=== PATIENT | female | born 1995 | race Caucasian/White ===

== ENCOUNTER → 2016-10-01 | Outpatient (CLI) | payer OTHER ==
[~2016-10-01] MED LIST: ISOVUE-M 300 61% 15ML VIAL (Q9967) As Ordered ONE; LIDOCAINE 1% SDV INJ 30 ML VIAL As Ordered ONE; diazePAM 5 MG TAB As Ordered ONE; methylPREDNISolone SUSP 40 MG/ML (DEPO-medrol) VIAL (J1030) As Ordered ONE; oxyCODONE 5MG TAB As Ordered ONE
--- NOTE | 2016-10-01 17:20 | REP ---
FLUOROSCOPIC GUIDED SPINAL INJECTION: The images were reviewed with Dr. Patel. The patient has a history of low back pain. The portable C-arm was provided in the OR for Dr. Torre for fluoroscopic guidance. Four intraoperative fluoroscopic spot films were obtained for needle placement verification for lumbar epidural injection. The films are on the PACs system and are available for review. 16 seconds of fluoroscopy time was utilized for this procedure. Reviewed by DEREK Huang 10/02/2016 07:54 AEdited and Signed by Jerome Patel MD 10/02/2016 01:26 P
--- NOTE | 2016-10-05 00:25 | ECWPNPC ---
PATIENT NAME: MARYLU RICKETTS : 1995 GENDER: FEMALE VISIT DATE: 10/01/2016 DISCHARGE DATE: 10/01/16 1221 VISIT LOCKED DATE TIME: PHYSICIAN: ZUHAIR NIELSON RESOURCE: ZUHAIR NIELSON REASON FOR APPOINTMENT 1. LESB HISTORY OF PRESENT ILLNESS HISTORY OF PRESENT ILLNESS: PAIN THE PATIENT DESCRIBES THE PAIN... FALL RISK SCREENING: SCREENING :NO FALLS IN THE PAST YEAR CURRENT MEDICATIONS TAKING CYCLOBENZAPRINE HCL 10 MG TABLET 1 TABLET ORALLY THREE TIMES A DAY NEEDED, NOTES: > 1 WEEK TAKING SPIRONOLACTONE 25 MG TABLET 2 TABLETS ORALLY TWICE A DAY, NOTES: 09/29/16 TAKING LYRICA 75 MG CAPSULE 1 CAPSULE ORALLY TWICE A DAY, NOTES: 09/29/161999 NOT-TAKING GABAPENTIN 300 MG CAPSULE 1 CAPSULE ORALLY THREE TIMES A DAY MEDICATION LIST REVIEWED AND RECONCILED WITH THE PATIENT PAST MEDICAL HISTORY PCOS ALLERGIES ZITHROMAX: HIVES: ALLERGY SOCIAL HISTORY TOBACCO USE ARE YOU A:NONSMOKER LEARNING BARRIERS / SPECIAL NEEDS ORIENTED TO PLAN OF CARE: PATIENT, PAIN MANAGEMENT PATIENT, ORIENTED TO PLAN OF CARE: PATIENT, PAIN MANAGEMENT PATIENT. NEW PATIENT PAIN DIARY TODAY'S VISITNOTES FROM 0-10, WHAT LEVEL IS YOUR PAIN TODAY?0 PAIN CLINIC PFS, CLERGY, PUBLIC HEALTH REFERRALS PFS REFERRAL NEEDED?NO CLERGY REFERRAL NEEDED?NO PUBLIC HEALTH REFERRAL NEEDED?NO WAS THE PROVIDER NOTIFIED OF ANY PERTINENT INFO?NO PFS REFERRAL NEEDED?NO CLERGY REFERRAL NEEDED?NO PUBLIC HEALTH REFERRAL NEEDED?NO WAS THE PROVIDER NOTIFIED OF ANY PERTINENT INFO?NO REVIEW OF SYSTEMS CONSTITUTIONAL: ANY CHANGE IN YOUR MEDICAL CONDITION? NO . CHILLS NO . FEVER NO . INFECTION: DO YOU HAVE NEW INFECTIONS? NO . DO YOU HAVE HISTORY OF MRSA? NO . MUSCULOSKELETAL: ANY NEW PATTERNS OF PAIN OR NUMBNESS? NO . GASTROENTEROLOGY: ANY NEW CHANGE IN BOWEL CONTROL? NO . GENITOURINARY: ANY NEW CHANGE IN BLADDER CONTROL? NO . IS THERE A CHANCE YOU COULD BE ? NO . HEMATOLOGY/LYMPH: DO YOU TAKE ANY BLOOD THINNERS? (FOR EXAMPLE- COUMADIN, PLAVIX, AGGRENOX, PLATEL, PRADAXA, OR XARELTO) NO . WHEN WAS YOUR LAST DOSE? DATE: TIME: . NEUROLOGY: HAVE YOU FALLEN IN THE PAST 6 MONTHS? NO . ANY NEW EXTREMITY NUMBNESS OR WEAKNESS? NO . CARDIOLOGY: DO YOU HAVE A PACEMAKER OR DEFIBRILLATOR? NO . RESPIRATORY: HAVE YOU BEEN SICK IN THE PAST WEEK? NO . FEVER NO . FLU LIKE SYMPTOMS? NO . COUGH NO . INTEGUMENTARY: DO YOU HAVE ANY RASHES OR OPEN SORES? NO . ALLERGIC/IMMUNO: ARE YOU ALLERGIC TO SHELLFISH OR IV DYE? NO . ANY NEW ALLERGIES? NO . PSYCHIATRIC: DO YOU HAVE THOUGHTS OF HURTING YOURSELF OR SOMEONE ELSE? NO . ARE YOU ABUSED, NEGLECTED, OR IN AN UNSAFE ENVIRONMENT? NO . ENDOCRINOLOGY: ARE YOU DIABETIC? NO . OTHER: DO YOU NEED ANY PRESCRIPTIONS? NO . IF YES, PLEASE LIST: ____ . ANY NEW PROBLEMS WITH YOUR MEDICATIONS? NO . WHEN DID YOU LAST EAT? ____09/30/161999 . WHEN DID YOU LAST DRINK? ____10/01/16 0700 . WHAT DID YOU LAST DRINK? ____WATER . NAME OF PERSON DRIVING YOU HOME? ABDELRAHMAN WAGNER . DO YOU HAVE ANY OTHER QUESTIONS OR CONCERNS NO . REVIEWED BY: PROVIDER: . VITAL SIGNS WT 150 LBS, HT 64", BMI 25.74 INDEX, BP 120/65 MM HG, HR 77 /MIN, RR 16 /MIN, TEMP 96.3 F, OXYGEN SAT % 98%, NA INITIALS SC 09:40, REVIEWED BY: JEZ. ASSESSMENTS INTERVERTEBRAL DISC DISORDERS WITH RADICULOPATHY, LUMBOSACRAL REGION - M51.17 (PRIMARY) PROCEDURES PRE PROCEDURE DIAGNOSIS LUMBOSACRAL DISC DISORDER WITH RADICULOPATHY POST PROCEDURE DIAGNOSIS LUMBOSACRAL DISC DISORDER WITH RADICULOPATHY PROCEDURE LUMBAR EPIDURAL STEROID INJECTION UNDER FLUOROSCOPIC GUIDANCE SURGEON DR. ZUHAIR NIELSON DIGITAL STRATEGIST SENIOR MANAGER NONE ANESTHESIA LOCAL PRE PROCEDURE NOTE THE PATIENT HAS A HISTORY OF CHRONIC LOW BACK PAIN. I EVALUATE THE PATIENT AND REVIEWED THE CHART. I WENT OVER THE RISKS, ALTERNATIVES, AND BENEFITS ASSOCIATED WITH THIS PROCEDURE. THE PATIENT WOULD LIKE TO PROCEED AND GIVE CONSENT TO PERFORMED THE PROCEDURE. THE PATIENT DENIES UNEXPLAINABLE WEIGHT LOSS, FEVER, CHILLS, OR NEW CHANGES IN URINARY OR BOWEL CONTROL. DESCRIPTION OF PROCEDURE THE PATIENT WAS BROUGHT TO THE PROCEDURE ROOM AND PLACED IN THE PRONE POSITION. THE LUMBOSACRAL AREA WAS CLEANED WITH BETADINE SOLUTION AND DRAPED ASEPTICALLY. THE PROCEDURE WAS DONE UNDER STERILE CONDITIONS. I CHECKED LATERALITY AND THE LEVEL WHERE THE PROCEDURE WAS GOING TO BE PERFORMED WITH THE PATIENT AND THE SUPPORTING STAFF AT THE MOMENT OF THE TIME OUT IN THE PROCEDURE ROOM. UNDER FLUOROSCOPIC GUIDANCE, THE TARGET POINT WAS SELECTED AT THE INTERLAMINAR LEVEL OF L5-S1. LIDOCAINE WAS USED TO NUMB THE SKIN AND THE SUBCUTANEOUS TISSUE BELOW IT. EPIDURAL TUOHY NEEDLE, 17-GAUGE, WAS ADVANCED UNDER FLUOROSCOPIC GUIDANCE AND FOLLOWING PATIENT FEEDBACK UNTIL THE EPIDURAL SPACE WAS REACHED, 7 CM DEEP INTO THE SKIN BY THE LOSS OF RESISTANCE TECHNIQUE. ISOVUE M DYE 30%, 0.25 ML, WAS INJECTED SHOWING ADEQUATE SPREAD OF THE DYE. THEN, A SOLUTION OF 3 ML OF NORMAL SALINE WITH DEPO-MEDROL 60 MG WAS INJECTED SLOWLY FOLLOWING PATIENT FEEDBACK. THERE WAS NO EVIDENCE OF BLOOD, PARESTHESIA OR CEREBROSPINAL FLUID DURING THE PROCEDURE. THE PATIENT WAS SENT TO THE RECOVERY ROOM. THE PATIENT WAS MOVING THE EXTREMITIES AND DOING WELL. THERE WAS NO COMPLICATION DURING THE PROCEDURE. FLUOROSCOPY TIME WAS 16 SECONDS. POST PROCEDURE NOTE THE PATIENT WILL BE SEEN IN A FOLLOW UP IN THE NEXT FEW WEEKS. INSTRUCTIONS WERE GIVEN, QUESTIONS WERE ANSWERED, AND THE PATIENT EXPRESSED UNDERSTANDING AND AGREES WITH THE PLAN. DIAGNOSTIC IMAGING [facility] FLUORO GUIDE SPINE INJECTION (PAIN)[id number] PROCEDURE CODES 33105 LUMBAR/SACRAL W/ IMAGING 6045F RADXPS IN END [id number] PXD FOLLOW UP 3 WEEKS ELECTRONICALLY SIGNED BY ZUHAIR NIELSON MD ON 10/04/2016 AT 11:49 PM EST DISCLAIMER : THIS IS A VISIT SUMMARY EXTRACTED FROM THE [employer] CHART. IT IS NOT A COPY OF THE [employer] PROGRESS NOTE. MTDD
== END ==
LOC: M PAIN 09:40
PROVIDERS: ATTEND Anesthesiology
DX: G89.29 Other chronic pain (principal); M51.17 Intervertebral disc disorders with radiculopathy, lumbosacral region; E28.2 Polycystic ovarian syndrome; Z88.8 Allergy status to other drugs, medicaments and biological substances; Z79.899 Other long term (current) drug therapy
CPT/HCPCS: 62323; J1030; Q9967

== ENCOUNTER → 2016-10-15 | Outpatient (CLI) | payer OTHER ==
--- NOTE | 2016-10-16 00:15 | ECWPNPC ---
PATIENT NAME: MARYLU RICKETTS : 1995 GENDER: FEMALE VISIT DATE: 10/15/2016 DISCHARGE DATE: 10/15/16 0958 VISIT LOCKED DATE TIME: PHYSICIAN: CHARLES ARZOLA RESOURCE: CHARLES ARZOLA REASON FOR APPOINTMENT 1. POST LESI 40 MIN HISTORY OF PRESENT ILLNESS HISTORY OF PRESENT ILLNESS: HERE FOR POST PROCEDURE F/U.HAD LESI #1 10-01-2016.REPORTING 50% REDUCTION IN LBP AND LESS FREQUENT AND LESS INTENSE RIGHT LEG SHOOTING PAIN.RATING PAIN VAS 4/10.HAVING INTERMITTENT SEVERE LBP WITH LIFTING OR BENDING THAT IS UNCHANGED SINCE LESI.SAW INES [place] AT [facility] [place] RECENTLY WHO DID NOT RECOMMEND SURGERY.PATIENT IS PURSUING A SECOND OPINION WITH DR. VILLARREAL AT [facility] [place]DISCUSSED TREATMENT OPTIONS. FALL RISK SCREENING: SCREENING :NO FALLS IN THE PAST YEAR CURRENT MEDICATIONS TAKING CYCLOBENZAPRINE HCL 10 MG TABLET 1 TABLET ORALLY THREE TIMES A DAY NEEDED, NOTES: > 1 WEEK TAKING SPIRONOLACTONE 25 MG TABLET 2 TABLETS ORALLY TWICE A DAY, NOTES: 09/29/16 TAKING LYRICA 150 MG CAPSULE 1 CAPSULE ORALLY TWICE A DAY, NOTES: 09/29/161999 TAKING TRAMADOL HCL 50 MG TABLET 1 TAB ORALLY ONCE DAILY NEEDED NOT-TAKING GABAPENTIN 300 MG CAPSULE 1 CAPSULE ORALLY THREE TIMES A DAY MEDICATION LIST REVIEWED AND RECONCILED WITH THE PATIENT PAST MEDICAL HISTORY PCOS ALLERGIES ZITHROMAX: HIVES: ALLERGY SOCIAL HISTORY GENERAL: TOBACCO USE ARE YOU A:CURRENT SMOKER HOW MANY CIGARETTES A DAY DO YOU SMOKE?5 OR LESS HOW SOON AFTER YOU WAKE UP DO YOU SMOKE YOUR FIRST CIGARETTE?AFTER 60 MIN HOW OFTEN DO YOU SMOKE CIGARETTES?SOME DAYS, BUT NOT EVERY DAY PATIENT COUNSELED ON THE DANGERS OF TOBACCO USE AND URGED TO QUIT: COUNCELED ON THE IMPORTANCE OF QUITTING. SHE IS NOT READY AT THIS TIME ARE YOU INTERESTED IN QUITTING?NOT READY TO QUIT LEARNING BARRIERS / SPECIAL NEEDS ORIENTED TO PLAN OF CARE: PATIENT, PAIN MANAGEMENT PATIENT, ORIENTED TO PLAN OF CARE: PATIENT, PAIN MANAGEMENT PATIENT. NEW PATIENT PAIN DIARY TODAY'S VISITNOTES FROM 0-10, WHAT LEVEL IS YOUR PAIN TODAY?0 PAIN CLINIC PFS, CLERGY, PUBLIC HEALTH REFERRALS PFS REFERRAL NEEDED?NO CLERGY REFERRAL NEEDED?NO PUBLIC HEALTH REFERRAL NEEDED?NO WAS THE PROVIDER NOTIFIED OF ANY PERTINENT INFO?NO PFS REFERRAL NEEDED?NO CLERGY REFERRAL NEEDED?NO PUBLIC HEALTH REFERRAL NEEDED?NO WAS THE PROVIDER NOTIFIED OF ANY PERTINENT INFO?NO REVIEW OF SYSTEMS CONSTITUTIONAL: ANY CHANGE IN YOUR MEDICAL CONDITION? NO . RECENT ILLNESS DENIES . CHILLS NO . FEVER NO . WEIGHT LOSS DENIES . INFECTION: DO YOU HAVE NEW INFECTIONS? NO . DO YOU HAVE HISTORY OF MRSA? NO . MUSCULOSKELETAL: ANY NEW PATTERNS OF PAIN OR NUMBNESS? NO . GASTROENTEROLOGY: ANY NEW CHANGE IN BOWEL CONTROL? NO . GENITOURINARY: ANY NEW CHANGE IN BLADDER CONTROL? YES, STRESS INCONTINENCE X 6 MONTHS . IS THERE A CHANCE YOU COULD BE ? NO . HEMATOLOGY/LYMPH: DO YOU TAKE ANY BLOOD THINNERS? (FOR EXAMPLE- COUMADIN, PLAVIX, AGGRENOX, PLATEL, PRADAXA, OR XARELTO) NO . WHEN WAS YOUR LAST DOSE? DATE: TIME: . NEUROLOGY: HAVE YOU FALLEN IN THE PAST 6 MONTHS? NO . ANY NEW EXTREMITY NUMBNESS OR WEAKNESS? NO . CARDIOLOGY: DO YOU HAVE A PACEMAKER OR DEFIBRILLATOR? NO . CHEST PAIN DENIES . SHORTNESS OF BREATH DENIES . RESPIRATORY: HAVE YOU BEEN SICK IN THE PAST WEEK? NO . FEVER NO . FLU LIKE SYMPTOMS? NO . COUGH NO, DENIES . SHORTNESS OF BREATH DENIES . INTEGUMENTARY: DO YOU HAVE ANY RASHES OR OPEN SORES? NO . ALLERGIC/IMMUNO: ARE YOU ALLERGIC TO SHELLFISH OR IV DYE? NO . ANY NEW ALLERGIES? NO . PSYCHIATRIC: DO YOU HAVE THOUGHTS OF HURTING YOURSELF OR SOMEONE ELSE? NO . ARE YOU ABUSED, NEGLECTED, OR IN AN UNSAFE ENVIRONMENT? NO . ENDOCRINOLOGY: ARE YOU DIABETIC? NO . OTHER: DO YOU NEED ANY PRESCRIPTIONS? NO . IF YES, PLEASE LIST: ____ . ANY NEW PROBLEMS WITH YOUR MEDICATIONS? NO . WHEN DID YOU LAST EAT? ____ . WHEN DID YOU LAST DRINK? ____ . WHAT DID YOU LAST DRINK? ____ . NAME OF PERSON DRIVING YOU HOME? ____ . DO YOU HAVE ANY OTHER QUESTIONS OR CONCERNS YES WOULD LIKE ANOTHER EPIDURAL . REVIEWED BY: PROVIDER: CHARLES ROBIN . VITAL SIGNS WT 150 LBS, HT 64", BMI 25.74 INDEX, BP 145/70 MM HG, HR 63 /MIN, RR 16 /MIN, TEMP 97.3 F, OXYGEN SAT % 100, NA INITIALS TL 0909, REVIEWED BY: AD. EXAMINATION GENERAL EXAMINATION: LUNGS:LUNG SOUNDS ARE CLEAR. HEART:HEART RATE REGULAR. MUSCULOSKELETAL:*, MUSCLE STRENGTH TESTING 5/5 BILATERAL LOWER EXTREMITIES. PALPATION: NEGATIVE FOR PAIN OVER L/S SPINE. NEGATIVE FOR PAIN OVER L/S PARASPINALS. DIAGNOSTIC:MRI L/S [id number] AND [id number].. ASSESSMENTS PROTRUSION OF INTERVERTEBRAL DISC OF LUMBOSACRAL REGION - M51.27 (PRIMARY) LUMBAR RADICULOPATHY - M54.16 TREATMENT PROTRUSION OF INTERVERTEBRAL DISC OF LUMBOSACRAL REGION CAUDAL/LUMBAR EPIDURAL NOTES: OPTION FOR EPIDURAL INJECTIONS WERE DISCUSSED WITH THE PATIENT. FDA CONCERNS AND WARNING WERE REVIEWED INCLUDING THE RISK OF BLEEDING, RISK OF INFECTION, RISK OF INCREASED PAIN OR NEURALGIA, AND RISK OF PARALYSIS. PATIENT'S QUESTIONS WERE ANSWERED AND HE/SHE WISHES TO MOVE FORWARD WITH EPIDURAL INJECTION. PREVENTIVE MEDICINE PAIN CLINIC TEACHING: PROCEDURE TEACHING PT. DECLINED PRINTED INFORMATION ON THE EPIDURAL.. PROCEDURE CODES FA211 ESTABILISHED PATIENT [facility] CHARGE FOLLOW UP 2WK POST ELECTRONICALLY SIGNED BY SHARDA PIÑA ON 10/15/2016 AT 02:37 PM EST DISCLAIMER : THIS IS A VISIT SUMMARY EXTRACTED FROM THE [employer] CHART. IT IS NOT A COPY OF THE [employer] PROGRESS NOTE. PAULINE
== END ==
LOC: M PAIN 10:00
PROVIDERS: ATTEND Nurse Practitioner Family
DX: M51.27 Other intervertebral disc displacement, lumbosacral region (principal); M54.16 Radiculopathy, lumbar region; G89.29 Other chronic pain; Z79.891 Long term (current) use of opiate analgesic; Z79.899 Other long term (current) drug therapy; F17.210 Nicotine dependence, cigarettes, uncomplicated; Z88.1 Allergy status to other antibiotic agents

== ENCOUNTER → 2016-11-05 | Outpatient (CLI) | payer OTHER ==
[~2016-11-05] MED LIST changes: +diphenhydrAMINE 25 MG CAP As Ordered ONE
--- NOTE | 2016-11-05 14:34 | REP ---
Partial lumbar spine series: Three views. History: Injection procedure for pain. 8 seconds of fluoroscopy time is reported. Findings: A sequence of three fluoroscopically obtained last minute hold spot radiographs of the lumbosacral junction document needle position and contrast injection associated with lumbar epidural injection procedure. Signed by Angel Lozano MD 11/05/2016 04:33 P
--- NOTE | 2016-11-12 01:13 | ECWPNPC ---
PATIENT NAME: MARYLU RICKETTS : 1995 GENDER: FEMALE VISIT DATE: 11/05/2016 DISCHARGE DATE: 11/05/16 1257 VISIT LOCKED DATE TIME: PHYSICIAN: ZUHAIR NIELSON RESOURCE: ZUHAIR NIELSON REASON FOR APPOINTMENT 1. LESI HISTORY OF PRESENT ILLNESS HISTORY OF PRESENT ILLNESS: PAIN THE PATIENT DESCRIBES THE PAIN... FALL RISK SCREENING: SCREENING :NO FALLS IN THE PAST YEAR CURRENT MEDICATIONS TAKING CYCLOBENZAPRINE HCL 10 MG TABLET 1 TABLET ORALLY THREE TIMES A DAY NEEDED, NOTES: 10/29/16 TAKING SPIRONOLACTONE 25 MG TABLET 2 TABLETS ORALLY TWICE A DAY, NOTES: 11/04/16 0800 TAKING LYRICA 150 MG CAPSULE 1 CAPSULE ORALLY TWICE A DAY, NOTES: 11/04/16 0800 TAKING TRAMADOL HCL 50 MG TABLET 1 TAB ORALLY ONCE DAILY NEEDED, NOTES: 11/04/16 0800 NOT-TAKING GABAPENTIN 300 MG CAPSULE 1 CAPSULE ORALLY THREE TIMES A DAY MEDICATION LIST REVIEWED AND RECONCILED WITH THE PATIENT PAST MEDICAL HISTORY PCOS ALLERGIES ZITHROMAX: HIVES: ALLERGY SOCIAL HISTORY GENERAL: TOBACCO USE ARE YOU A:CURRENT SMOKER HOW MANY CIGARETTES A DAY DO YOU SMOKE?6-10 HOW SOON AFTER YOU WAKE UP DO YOU SMOKE YOUR FIRST CIGARETTE?AFTER 60 MIN HOW OFTEN DO YOU SMOKE CIGARETTES?EVERY DAY PATIENT COUNSELED ON THE DANGERS OF TOBACCO USE AND URGED TO QUIT: COUNCELED ON THE IMPORTANCE OF QUITTING. ARE YOU INTERESTED IN QUITTING?READY TO QUIT LEARNING BARRIERS / SPECIAL NEEDS ORIENTED TO PLAN OF CARE: PATIENT, PAIN MANAGEMENT PATIENT, ORIENTED TO PLAN OF CARE: PATIENT, PAIN MANAGEMENT PATIENT. NEW PATIENT PAIN DIARY TODAY'S VISITNOTES FROM 0-10, WHAT LEVEL IS YOUR PAIN TODAY?0 PAIN CLINIC PFS, CLERGY, PUBLIC HEALTH REFERRALS PFS REFERRAL NEEDED?NO CLERGY REFERRAL NEEDED?NO PUBLIC HEALTH REFERRAL NEEDED?NO WAS THE PROVIDER NOTIFIED OF ANY PERTINENT INFO?NO PFS REFERRAL NEEDED?NO CLERGY REFERRAL NEEDED?NO PUBLIC HEALTH REFERRAL NEEDED?NO WAS THE PROVIDER NOTIFIED OF ANY PERTINENT INFO?NO REVIEW OF SYSTEMS CONSTITUTIONAL: ANY CHANGE IN YOUR MEDICAL CONDITION? NO . CHILLS NO . FEVER NO . INFECTION: DO YOU HAVE NEW INFECTIONS? NO . DO YOU HAVE HISTORY OF MRSA? NO . MUSCULOSKELETAL: ANY NEW PATTERNS OF PAIN OR NUMBNESS? NO . GASTROENTEROLOGY: ANY NEW CHANGE IN BOWEL CONTROL? NO . GENITOURINARY: ANY NEW CHANGE IN BLADDER CONTROL? NO . IS THERE A CHANCE YOU COULD BE ? NO, DENIES ANY CHANCE OF PREG. . HEMATOLOGY/LYMPH: DO YOU TAKE ANY BLOOD THINNERS? (FOR EXAMPLE- COUMADIN, PLAVIX, AGGRENOX, PLATEL, PRADAXA, OR XARELTO) NO . WHEN WAS YOUR LAST DOSE? DATE: TIME: . NEUROLOGY: HAVE YOU FALLEN IN THE PAST 6 MONTHS? NO . ANY NEW EXTREMITY NUMBNESS OR WEAKNESS? NO . CARDIOLOGY: DO YOU HAVE A PACEMAKER OR DEFIBRILLATOR? NO . RESPIRATORY: HAVE YOU BEEN SICK IN THE PAST WEEK? NO . FEVER NO . FLU LIKE SYMPTOMS? NO . COUGH NO . INTEGUMENTARY: DO YOU HAVE ANY RASHES OR OPEN SORES? NO . ALLERGIC/IMMUNO: ARE YOU ALLERGIC TO SHELLFISH OR IV DYE? NO . ANY NEW ALLERGIES? NO . PSYCHIATRIC: DO YOU HAVE THOUGHTS OF HURTING YOURSELF OR SOMEONE ELSE? NO . ARE YOU ABUSED, NEGLECTED, OR IN AN UNSAFE ENVIRONMENT? NO . ENDOCRINOLOGY: ARE YOU DIABETIC? NO . OTHER: DO YOU NEED ANY PRESCRIPTIONS? NO . IF YES, PLEASE LIST: ____ . ANY NEW PROBLEMS WITH YOUR MEDICATIONS? NO . WHEN DID YOU LAST EAT? ____11/04/161999 . WHEN DID YOU LAST DRINK? ____11/05/16 0700 . WHAT DID YOU LAST DRINK? ____WATER . NAME OF PERSON DRIVING YOU HOME? ____CRYSTAL MEEK . DO YOU HAVE ANY OTHER QUESTIONS OR CONCERNS YES, WANTS PRESEDATION. LAST FLU VACCINE 06/2016 . REVIEWED BY: PROVIDER: . VITAL SIGNS WT 150 LBS, HT 64", BMI 25.74 INDEX, BP 130/63 MM HG, HR 75 /MIN, RR 16 /MIN, TEMP 97.5 F, OXYGEN SAT % 98, NA INITIALS TL 0940, REVIEWED BY: CRESENCIO, LMP: 09/13/17STATES HER PERIODS ARE IRREGULAR. ASSESSMENTS INTERVERTEBRAL DISC DISORDERS WITH RADICULOPATHY, LUMBOSACRAL REGION - M51.17 (PRIMARY) PROCEDURES PRE PROCEDURE DIAGNOSIS LUMBOSACRAL DISC DISORDER WITH RADICULOPATHY, LUMBOSACRAL RADICULOPATHY POST PROCEDURE DIAGNOSIS LUMBOSACRAL RADICULOPATHY , LUMBOSACRAL DISC DISORDER WITH RADICULOPATHY PROCEDURE L5-S1 EPIDURAL STEROID INJECTION UNDER FLUOROSCOPIC GUIDANCE SURGEON DR. ZUHAIR NIELSON TRIMMING ASSEMBLER NONE ANESTHESIA LOCAL PRE PROCEDURE NOTE THE PATIENT HAS A HISTORY OF CHRONIC LOW BACK PAIN. I EVALUATE THE PATIENT AND REVIEWED THE CHART. I WENT OVER THE RISKS, ALTERNATIVES, AND BENEFITS ASSOCIATED WITH THIS PROCEDURE. THE PATIENT WOULD LIKE TO PROCEED AND GIVE CONSENT TO PERFORMED THE PROCEDURE. THE PATIENT DENIES UNEXPLAINABLE WEIGHT LOSS, FEVER, CHILLS, OR NEW CHANGES IN URINARY OR BOWEL CONTROL. DESCRIPTION OF PROCEDURE THE PATIENT WAS BROUGHT TO THE PROCEDURE ROOM AND PLACED IN THE PRONE POSITION. THE LUMBOSACRAL AREA WAS CLEANED WITH BETADINE SOLUTION AND DRAPED ASEPTICALLY. THE PROCEDURE WAS DONE UNDER STERILE CONDITIONS. I CHECKED LATERALITY AND THE LEVEL WHERE THE PROCEDURE WAS GOING TO BE PERFORMED WITH THE PATIENT AND THE SUPPORTING STAFF AT THE MOMENT OF THE TIME OUT IN THE PROCEDURE ROOM. UNDER FLUOROSCOPIC GUIDANCE, THE TARGET POINT WAS SELECTED AT THE INTERLAMINAR LEVEL OF L5-S1. LIDOCAINE WAS USED TO NUMB THE SKIN AND THE SUBCUTANEOUS TISSUE BELOW IT. EPIDURAL TUOHY NEEDLE, 17-GAUGE, WAS ADVANCED UNDER FLUOROSCOPIC GUIDANCE AND FOLLOWING PATIENT FEEDBACK UNTIL THE EPIDURAL SPACE WAS REACHED, 7 CM DEEP INTO THE SKIN BY THE LOSS OF RESISTANCE TECHNIQUE. ISOVUE M DYE 30%, 0.25 ML, WAS INJECTED SHOWING ADEQUATE SPREAD OF THE DYE. THEN, A SOLUTION OF 3 ML OF NORMAL SALINE WITH DEPO-MEDROL 60 MG WAS INJECTED SLOWLY FOLLOWING PATIENT FEEDBACK. THERE WAS NO EVIDENCE OF BLOOD, PARESTHESIA OR CEREBROSPINAL FLUID DURING THE PROCEDURE. THE PATIENT WAS SENT TO THE RECOVERY ROOM. THE PATIENT WAS MOVING THE EXTREMITIES AND DOING WELL. THERE WAS NO COMPLICATION DURING THE PROCEDURE. FLUOROSCOPY TIME WAS 8 SECONDS. POST PROCEDURE NOTE THE PATIENT WILL BE SEEN IN A FOLLOW UP IN THE NEXT FEW WEEKS. INSTRUCTIONS WERE GIVEN, QUESTIONS WERE ANSWERED, AND THE PATIENT EXPRESSED UNDERSTANDING AND AGREES WITH THE PLAN. INSTRUCTIONS WERE GIVEN, QUESTIONS WERE ANSWERED, PATIENT REPORTS UNDERSTANDING AND AGREES WITH THE PLAN. I, SAULO WOODS, DOCUMENTED THE ABOVE INFORMATION ACTING A SCRIBE FOR DR. NIELSON. I HAVE REVIEWED THE ABOVE DOCUMENT, WRITTEN BY SAULO WOODS SCRIBConstantino AND I VERIFY THAT IT IS ACCURATE. DIAGNOSTIC IMAGING [facility] FLUORO GUIDE SPINE INJECTION (PAIN)[id number] PROCEDURE CODES 88810 LUMBAR/SACRAL W/ IMAGING 6045F RADXPS IN END [id number] PXD FOLLOW UP 3 WEEKS ELECTRONICALLY SIGNED BY ZUHAIR NIELSON MD ON 11/10/2016 AT 01:13 PM EST DISCLAIMER : THIS IS A VISIT SUMMARY EXTRACTED FROM THE [employer] CHART. IT IS NOT A COPY OF THE [employer] PROGRESS NOTE. MTDD
== END ==
LOC: M PAIN 09:40
PROVIDERS: ATTEND Anesthesiology
DX: G89.29 Other chronic pain (principal); M51.17 Intervertebral disc disorders with radiculopathy, lumbosacral region; F17.200 Nicotine dependence, unspecified, uncomplicated; Z88.1 Allergy status to other antibiotic agents; Z79.891 Long term (current) use of opiate analgesic; Z79.899 Other long term (current) drug therapy
CPT/HCPCS: 62323; J1030; Q9967

== ENCOUNTER → 2016-11-19 | Outpatient (CLI) | payer OTHER ==
--- NOTE | 2016-11-19 14:51 | REP ---
CT LUMBAR SPINE WITHOUT CONTRAST: HISTORY: Back pain. There is no disc bulge or herniation at the L1-2 through L3-4 and L5-S1 levels. The nerves exit the neural foramina without compression. The intervertebral discs and vertebral bodies are normal in height. There is no fracture or subluxation. IMPRESSION: Diffuse disc bulge at the L4-5 level with minimal thecal sac compression. Signed by Adelfo Dennis MD 11/19/2016 02:53 P
== END ==
LOC: M RAD 14:13
PROVIDERS: ATTEND Orthopaedic Surgery
DX: M51.27 Other intervertebral disc displacement, lumbosacral region (principal)

== ENCOUNTER → 2017-01-14 | Outpatient (CLI) | payer OTHER ==
--- NOTE | 2017-01-26 00:06 | ECWPNPC ---
PATIENT NAME: MARYLU RICKETTS : 1995 GENDER: FEMALE VISIT DATE: 01/14/2017 DISCHARGE DATE: 01/14/17 1127 VISIT LOCKED DATE TIME: PHYSICIAN: CHARLES ARZOLA RESOURCE: CHARLES ARZOLA REASON FOR APPOINTMENT 1. BACK PAIN HISTORY OF PRESENT ILLNESS HISTORY OF PRESENT ILLNESS: PAIN THE PATIENT DESCRIBES THE PAIN... THE PATIENT DESCRIBES THE PAIN... HERE FOR POST PROCEDURE F/U.HAD LESI #2 ON 11-05-2016.REPORTING 50% REDUCTION IN LBP AND LESS FREQUENT AND LESS INTENSE RIGHT LEG SHOOTING PAIN X ONE MONTH.RATING PAIN VAS 6/10.HAVING INTERMITTENT SEVERE LBP WITH LIFTING OR BENDING THAT IS UNCHANGED SINCE LESI.SAW INES [place] AT [facility] IN [place] RECENTLY WHO DID NOT RECOMMEND SURGERY.SAW DR. VILLARREAL AT [facility] [place] FEW WEEKS AGO WHO IS NOT RECOMMENDING SURGERY.DISCUSSED TREATMENT OPTIONS.PATIENT IS HAVING NO RELAXATION AFTER MULTPLE DOSES OF VALIUM,OXYCODONE AND BENADRYL PRE PROCEDURE.DR. NIELSON IS RECOMMENDING CONCIOUS SEDATION DURING PROCEDURE. FALL RISK SCREENING: SCREENING :NO FALLS IN THE PAST YEAR CURRENT MEDICATIONS TAKING CYCLOBENZAPRINE HCL 10 MG TABLET 1 TABLET ORALLY THREE TIMES A DAY NEEDED TAKING SPIRONOLACTONE 25 MG TABLET 2 TABLETS ORALLY TWICE A DAY TAKING LYRICA 150 MG CAPSULE 1 CAPSULE ORALLY TWICE A DAY TAKING TRAMADOL HCL 50 MG TABLET 1 TAB ORALLY ONCE DAILY NEEDED NOT-TAKING GABAPENTIN 300 MG CAPSULE 1 CAPSULE ORALLY THREE TIMES A DAY MEDICATION LIST REVIEWED AND RECONCILED WITH THE PATIENT PAST MEDICAL HISTORY PCOS ALLERGIES ZITHROMAX: HIVES: ALLERGY SOCIAL HISTORY GENERAL: TOBACCO USE ARE YOU A:CURRENT SMOKER HOW MANY CIGARETTES A DAY DO YOU SMOKE?5 OR LESS HOW SOON AFTER YOU WAKE UP DO YOU SMOKE YOUR FIRST CIGARETTE?AFTER 60 MIN HOW OFTEN DO YOU SMOKE CIGARETTES?EVERY DAY PATIENT COUNSELED ON THE DANGERS OF TOBACCO USE AND URGED TO QUIT:01/14/2017 ARE YOU INTERESTED IN QUITTING?NOT READY TO QUIT COUNSELED THE PATIENT ON SMOKING EFFECTS, EDUCATION [id number]/20/2017 PAIN CLINIC PFS, CLERGY, PUBLIC HEALTH REFERRALS CLERGY REFERRAL NEEDED?NO WAS THE PROVIDER NOTIFIED OF ANY PERTINENT INFO?NO PFS REFERRAL NEEDED?NO PUBLIC HEALTH REFERRAL NEEDED?NO PATIENT: ____. REVIEW OF SYSTEMS CONSTITUTIONAL: ANY CHANGE IN YOUR MEDICAL CONDITION? NO . CHILLS NO . FEVER NO . INFECTION: DO YOU HAVE NEW INFECTIONS? NO . DO YOU HAVE HISTORY OF MRSA? NO . MUSCULOSKELETAL: ANY NEW PATTERNS OF PAIN OR NUMBNESS? NO . GASTROENTEROLOGY: ANY NEW CHANGE IN BOWEL CONTROL? NO . GENITOURINARY: ANY NEW CHANGE IN BLADDER CONTROL? NO . IS THERE A CHANCE YOU COULD BE ? NO . HEMATOLOGY/LYMPH: DO YOU TAKE ANY BLOOD THINNERS? (FOR EXAMPLE- COUMADIN, PLAVIX, AGGRENOX, PLATEL, PRADAXA, OR XARELTO) NO . WHEN WAS YOUR LAST DOSE? DATE: TIME: . NEUROLOGY: HAVE YOU FALLEN IN THE PAST 6 MONTHS? NO . ANY NEW EXTREMITY NUMBNESS OR WEAKNESS? NO . CARDIOLOGY: DO YOU HAVE A PACEMAKER OR DEFIBRILLATOR? NO . RESPIRATORY: HAVE YOU BEEN SICK IN THE PAST WEEK? NO . FEVER NO . FLU LIKE SYMPTOMS? NO . COUGH NO . INTEGUMENTARY: DO YOU HAVE ANY RASHES OR OPEN SORES? NO . ALLERGIC/IMMUNO: ARE YOU ALLERGIC TO SHELLFISH OR IV DYE? NO . ANY NEW ALLERGIES? NO . PSYCHIATRIC: DO YOU HAVE THOUGHTS OF HURTING YOURSELF OR SOMEONE ELSE? NO . ARE YOU ABUSED, NEGLECTED, OR IN AN UNSAFE ENVIRONMENT? NO . ENDOCRINOLOGY: ARE YOU DIABETIC? NO . OTHER: DO YOU NEED ANY PRESCRIPTIONS? NO . IF YES, PLEASE LIST: ____ . ANY NEW PROBLEMS WITH YOUR MEDICATIONS? NO . WHEN DID YOU LAST EAT? ____ . WHEN DID YOU LAST DRINK? ____ . WHAT DID YOU LAST DRINK? ____ . NAME OF PERSON DRIVING YOU HOME? ____ . DO YOU HAVE ANY OTHER QUESTIONS OR CONCERNS IF ANOTHER PROCEDURE IS SCHEDULED ? PLAN ON CONSCIOUS SEDATION. . REVIEWED BY: PROVIDER: CHARLES ROBIN . VITAL SIGNS WT 157.6 LBS, HT 64", BMI 27.05 INDEX, BP 129/67 MM HG, HR 63 /MIN, RR 16 /MIN, TEMP 98.4 F, OXYGEN SAT % 99%, NA INITIALS AW 1042, REVIEWED BY: CRESENCIO, LMP: 12/21/16. EXAMINATION GENERAL EXAMINATION: LUNGS:LUNG SOUNDS ARE CLEAR. HEART:HEART RATE REGULAR. MUSCULOSKELETAL:*, MUSCLE STRENGTH TESTING 5/5 BILATERAL LOWER EXTREMITIES. PALPATION: + FOR PAIN OVER L/S SPINE. + FOR PAIN OVER RIGHT L/S PARAASPINAL.NON TENDER OVER LEFT LOW BACK.SPECIFC POINT TENDERNESS RSIJ. DIAGNOSTIC:MRI L/S [id number].. ASSESSMENTS PROTRUSION OF INTERVERTEBRAL DISC OF LUMBOSACRAL REGION - M51.27 (PRIMARY) LUMBAR RADICULOPATHY - M54.16 TREATMENT PROTRUSION OF INTERVERTEBRAL DISC OF LUMBOSACRAL REGION CAUDAL/LUMBAR EPIDURALCHARLES ARZOLA 01/14/2017 11:18:54 AM > L4/5 ROGELIO Kelly CONCIOUS SEDATION PREVENTIVE MEDICINE LUMBAR EPIDURAL TEACHING REVIEWED WITH PT. PROCEDURE CODES FA211 ESTABILISHED PATIENT [facility] CHARGE DISPOSITION & COMMUNICATION FOLLOW UP 2WK POST (REASON: DELPHINE Kelly CONCIOUS SEDATION) ELECTRONICALLY SIGNED BY SHARDA PIÑA ON 01/25/2017 AT 12:43 PM EDT DISCLAIMER : THIS IS A VISIT SUMMARY EXTRACTED FROM THE [employer] CHART. IT IS NOT A COPY OF THE [employer] PROGRESS NOTE. PAULINE
== END ==
LOC: M PAIN 10:20
PROVIDERS: ATTEND Nurse Practitioner Family
DX: G89.29 Other chronic pain (principal); M51.27 Other intervertebral disc displacement, lumbosacral region; M54.16 Radiculopathy, lumbar region; F17.200 Nicotine dependence, unspecified, uncomplicated; Z88.1 Allergy status to other antibiotic agents; Z79.891 Long term (current) use of opiate analgesic; Z79.899 Other long term (current) drug therapy

== ENCOUNTER 2017-09-02 21:04 | Outpatient (CLI) | payer OTHER ==
[~2017-09-02] VITALS: Ht 154.9 cm; Wt 89.1 kg
[~2017-09-02 21:04] MED LIST changes: -ISOVUE-M 300 61% 15ML VIAL (Q9967) As Ordered ONE; -LIDOCAINE 1% SDV INJ 30 ML VIAL As Ordered ONE; +PRENTAB55 PO; -diazePAM 5 MG TAB As Ordered ONE; -diphenhydrAMINE 25 MG CAP As Ordered ONE; -methylPREDNISolone SUSP 40 MG/ML (DEPO-medrol) VIAL (J1030) As Ordered ONE; -oxyCODONE 5MG TAB As Ordered ONE
== END 2017-09-02 21:45 | disposition home or self-care (01) ==
LOC: M LDO 21:04
PROVIDERS: ATTEND Student in an Organized Health Care Education/Training Program
DX: O36.8130 Decreased fetal movements, third trimester, not applicable or unspecified (principal); Z3A.38 38 weeks gestation of pregnancy

== ENCOUNTER 2017-09-10 14:24 | Outpatient (CLI) | payer OTHER ==
[~2017-09-10] VITALS: Ht 154.9 cm; Wt 91.0 kg
[2017-09-10 14:36] VITALS: BP 140/74
[2017-09-10 15:35] VITALS: BP 128/66
== END 2017-09-10 16:42 | disposition home or self-care (01) ==
LOC: M LDO 14:24
PROVIDERS: ATTEND Obstetrics & Gynecology
DX: O47.1 False labor at or after 37 completed weeks of gestation (principal); Z3A.39 39 weeks gestation of pregnancy; N89.8 Other specified noninflammatory disorders of vagina; Z88.1 Allergy status to other antibiotic agents; O26.893 Other specified pregnancy related conditions, third trimester

== ENCOUNTER 2017-09-12 22:19 | Outpatient (CLI) | payer OTHER ==
[~2017-09-12] VITALS: Ht 154.9 cm; Wt 92.0 kg
[2017-09-12 22:33] VITALS: BP 133/77
== END 2017-09-12 22:56 | disposition home or self-care (01) ==
LOC: M LDO 22:19
PROVIDERS: ATTEND Obstetrics & Gynecology
DX: O47.1 False labor at or after 37 completed weeks of gestation (principal); Z3A.39 39 weeks gestation of pregnancy; Z88.1 Allergy status to other antibiotic agents

== ENCOUNTER 2017-09-17 22:42 | Outpatient (CLI) | payer OTHER ==
[~2017-09-17] VITALS: Ht 154.9 cm; Wt 93.0 kg
== END 2017-09-17 23:45 | disposition home or self-care (01) ==
LOC: M LDO 22:42
PROVIDERS: ATTEND Obstetrics & Gynecology
DX: O47.1 False labor at or after 37 completed weeks of gestation (principal); Z3A.40 40 weeks gestation of pregnancy; Z88.1 Allergy status to other antibiotic agents

== ENCOUNTER 2017-09-19 01:01 | Inpatient (IN) | payer OTHER ==
[~2017-09-19] VITALS: Ht 154.9 cm; Wt 94.0 kg
[2017-09-19] VITALS (76 sets, daily range): BP systolic 94–155; BP diastolic 50–85
[2017-09-19] MEDS ORDERED: PENICILLIN G POTASSIUM IV 5 MU in D5W MINI-BAG PLUS 100 ML IV STA (04:47)
[2017-09-19] MEDS ORDERED: LR 1,000 ML IV SCH (04:47)
[2017-09-19] MEDS ORDERED: LACTATED RINGER'S 1000 ML IV ONE (05:00)
[2017-09-19 05:09] LABS: MEAN CORPUSCULAR HEMOGLOBIN 30.6 pg (27.0-33.0); MEAN CORPUSCULAR HGB CONC 35.3 g/dl (32.0-36.5); MEAN CORPUSCULAR VOLUME 86.8 fl (80.0-96.0); PLATELET COUNT, AUTOMATED 186 10^3/uL (150-450); RED CELL DISTRIBUTION WIDTH 13.2 % (11.5-14.5); WHITE BLOOD COUNT 18.5 10^3/uL (4.0-10.0)
[2017-09-19] MEDS ORDERED: FENTANYL 2MCG/ML ROPIVACAINE 0.2% IN 0.9% NACL 200ML IVBAG As Ordered ONE (05:49)
[2017-09-19] MEDS ORDERED: LACTATED RINGER'S 1000 ML IV PRN (07:00)
[2017-09-19] MEDS ORDERED: EPIDURAL/PCA KEYS XX PRN (07:00)
[2017-09-19] MEDS ORDERED: FENTANYL/ROPIVACAINE/NACL BAG 200 ML EPIDURAL SCH (07:00)
[2017-09-19] MEDS ORDERED: EPIDURAL COMMENT XX SCH (07:00)
[2017-09-19] MEDS ORDERED: diphenhydrAMINE INJ 50MG/ML VIAL (J1200) IV PRN (07:00)
[2017-09-19] MEDS ORDERED: NALOXONE INJ 0.4 MG/1 ML VIAL (J2310) IV PRN (07:00)
[2017-09-19] MEDS ORDERED: ePHEDrine SULFATE 25 MG/5 ML(5MG/ML) SYRINGE IV PRN (07:00)
[2017-09-19] MEDS ORDERED: REFRIGERATOR IV KEYS XX PRN (07:00)
[2017-09-19] MEDS ORDERED: OXYTOCIN DRIP 30 UNITS in APPROPRIATE DILUENT 1 EA IV SCH (09:15)
[2017-09-19] MEDS ORDERED: OXYTOCIN 30 UNITS IN 0.9% NaCl 500ML IV BAG (J2590) As Ordered ONE (09:17)
[2017-09-19] MEDS: ONDANSETRON 4MG/2ML VIAL (J2405) IV PRN ×2 (09:30→14:10)
[2017-09-19] MEDS: PENICILLIN G POTASSIUM IV 2.5 MU in APPROPRIATE DILUENT 1 EA IV SCH ×3 (09:33→18:15)
[2017-09-19] MEDS ORDERED: ANUSOL HC CREAM 30GM TOP PRN (21:15)
[2017-09-19] MEDS ORDERED: METHYLERGONOVINE MALEATE 0.2 MG TAB PO PRN (21:15)
[2017-09-19] MEDS ORDERED: ACETAMINOPHEN 500 MG TAB PO PRN (21:15)
[2017-09-19] MEDS ORDERED: DIBUCAINE 1% OINTMENT 30GM TOP PRN (21:15)
[2017-09-19] MEDS ORDERED: MOM 30ML SUSPENSION UDC PO PRN (21:15)
[2017-09-19] MEDS ORDERED: RHOGAM 300 MCG (1500 IU) INJ (J2790) IM SCH (21:15)
[2017-09-19] MEDS ORDERED: MEASLES,MUMPS,RUBELLA VACCINE INJ (MMR-II) (90707) SC SCH (21:15)
[2017-09-19] MEDS ORDERED: DOCUSATE SODIUM 100 MG CAP PO PRN (21:15)
[2017-09-19 21:40] LABS: CORD GAS ABE V -7.8; CORD GAS HCO3 V 15.8 MEQ/L; CORD GAS O2 SAT V 77.2 %; CORD GAS PCO2 V 28.3 mmHg; CORD GAS PH V 7.364 UNITS; CORD GAS PO2 V 34.7 mmHg; CORD GAS SBC V 17.8 MEQ/L; CORD GAS TCO2 V 16.6 MEQ/L
[2017-09-19 21:42] LABS: CORD GAS ABE A -6.8; CORD GAS HCO3 A 20.7 MEQ/L; CORD GAS O2 SAT A 34.3 %; CORD GAS PCO2 A 48.9 mmHg; CORD GAS PH A 7.245 UNITS; CORD GAS PO2 A 17.4 mmHg; CORD GAS SBC A 17.6 MEQ/L; CORD GAS TCO2 A 22.2 MEQ/L
[2017-09-19] MEDS ORDERED: OXYTOCIN INJ 10 UNITS/ML VIAL (J2590) IV ONE (23:15)
[2017-09-19] MEDS: PERCOCET 5MG/325MG TAB PO PRN (23:28)
[2017-09-20 01:00] VITALS: BP 127/59
[2017-09-20] MEDS: IBUPROFEN 800 MG TAB PO PRN ×3 (01:09→23:58)
[2017-09-20 05:49] VITALS: BP 112/58
[2017-09-20] MEDS: PERCOCET 5MG/325MG TAB PO PRN ×3 (06:50→18:15)
[2017-09-20 06:58] LABS: MEAN CORPUSCULAR HEMOGLOBIN 30.9 pg (27.0-33.0); MEAN CORPUSCULAR HGB CONC 34.8 g/dl (32.0-36.5); MEAN CORPUSCULAR VOLUME 88.6 fl (80.0-96.0); PLATELET COUNT, AUTOMATED 151 10^3/uL (150-450); RED CELL DISTRIBUTION WIDTH 13.4 % (11.5-14.5); WHITE BLOOD COUNT 18.2 10^3/uL (4.0-10.0)
[2017-09-20] MEDS: PRENATAL VITAMINS CHEWABLE TABLET PO SCH (07:42)
--- NOTE | 2017-09-20 08:34 | HPE ---
DATE OF ADMISSION: 09/19/2017 HISTORY: This lady is a 21-year-old 1, para 0, last menstrual period (LMP) 12/11/2016, estimated date of confinement (EDC) 09/17/2017, at 42 weeks of gestation with the uterine irritability. She was seen in labor and delivery 24 hours before and was discharged with latent labor. She was also seen on 09/17/2017, 09/12/2017, 09/02/2017 and 07/31/2017. RISK FACTORS: Body mass index (BMI) is 30, was a smoker but quit, and Group B streptococcus (GBS) positive. LABORATORIES: O+, HIV negative, hepatitis negative, RPR negative, rubella immune. Varicella positive. Pap normal. Urine negative. Gonorrhea and chlamydia are negative. 1-hour glucose early was 92. 1-hour GTT at 28 weeks was 109 and she is GBS positive. On examination, she appears to be distressed. Symphysis fundus height is 40, vertex OA and -3 station, not well applied, 3 cm, soft, 60% effaced, category 1 strip. No urine is available. Temperature is 98.2, blood pressure 132/71, respirations 18, pulse 87. In summary, we have an early term gestation in either latent or prodromal labor. We will reevaluate in 2 hours' time. The patient has been encouraged to drink and mobilize.
--- NOTE | 2017-09-20 13:15 | IPN ---
DATE: 09/20/2017 This lady is 21-year-old, 1, now para 1, admitted in active labor at 40 and 2 weeks of gestation. She had a low vacuum delivery of bradycardia, spontaneous after that, when brought into the symphysis pubis in the occiput posterior (OP) position, asynclitic, a female 7 pounds 10 ounces, 3450 grams, and Apgars of 9 and 9 at one and five minutes respectively. Arterial pH 7.24, base excess -6.8; venous pH 7.36, base excess -7.8. This morning, she has significant swelling in her vulvar area which is being looked after with an ice diaper. She had a small labial laceration on the right side which was not repaired, it did not require any repair, it is basically like an abrasion. Her temperature this morning is 97.9, blood pressure is 112/58, respirations are 19, and pulse is 72. She had a questionable temperature of 100.0 back on 09/19/2017 at 2000 hours. This was not transferred to the provider physician and there was no other residuals subsequent to that. Her admitting hemoglobin was 12.5, hematocrit 35.4 and platelets were 186. We discussed phlebitis, cystitis, mastitis, endometritis and cellulitis; diet, exercise and pain management; perineal, breast and wound care. She is planning on using Mirena as a method of control, which we will further discuss at her 6-week checkup. She is planning on discharge tomorrow. Breast-feeding well. Meds will be covered prior to discharge. The patient and baby doing well.
[2017-09-20 18:00] VITALS: BP 133/62
[2017-09-21] MEDS: PERCOCET 5MG/325MG TAB PO PRN (05:01)
[2017-09-21 06:01] VITALS: BP 154/94
[2017-09-21] MEDS: PRENATAL VITAMINS CHEWABLE TABLET PO SCH (08:30)
[2017-09-21] MEDS: IBUPROFEN 800 MG TAB PO PRN (08:32)
[2017-09-21] MEDS ORDERED: ACET50TA PO (08:39)
[2017-09-21] MEDS ORDERED: IBUP-1114 PO (08:40)
[2017-09-21] MEDS ORDERED: COLA100C5 PO (08:40)
--- NOTE | 2017-09-21 18:05 | DN ---
DATE: 09/19/2017 This lady is a 21-year-old 1 now, para 1, who came in with intermittent contractions which turned into spontaneous labor. She was GBS positive. Required prophylactic coverage for GBS. Epidural was placed at the appropriate interval time. Had a category 1 strip throughout. Had an artificial rupture of membranes (ARM) at 5-6 cm dilatation. Draining clear liquor. Augmented with Pitocin at full dilatation in the occiput posterior (OP) position. Pushed for approximately 2 hours, after which time at +1 station. there was some intermittent bradycardia. We put the vacuum, Kiwi, on the presenting part, which was at +1, almost +2, as mother was exhausted and bradycardia was becoming to be more persistent. With one pull we were able to bring the vertex under the symphysis pubis, and we used approximately 5 mm mercury pressure. We removed the vacuum, at which time she spontaneously delivered a live- female weighing 7 pounds 10 ounces, 3450 grams, scores of 9 and 9 at one and five, respectively. Cord was around the neck once loose and around the body. Terminal meconium at delivery. The placenta, three vessels, membranes, and tissues intact. Arterial and venous pH. She had a spontaneous expulsion of the placenta. The uterus contracted well down on Pitocin. On examination she had a right labial laceration which did not require repair, and she had a varicosity in the fourchette on the right side, which required hemostasis with one stitch. The rest of the examination of the cervix and the rest of the vagina was normal. The sphincter was intact. Mucosa was intact. Uterus contracted well down on Pitocin. The patient and baby tolerating procedure well.
== END 2017-09-21 10:45 | disposition home or self-care (01) | DRG 775 ==
LOC: M LDO 01:01 → M LDI 04:41 → M OBS 09-20 00:25
PROVIDERS: ADMIT Obstetrics & Gynecology; ATTEND Obstetrics & Gynecology
PROC: 10D07Z6 Extraction of Products of Conception, Vacuum, Via Natural or Artificial Opening (ICD-10-PCS; principal; 2017-09-19)
PROC: 0HQ9XZZ Repair Perineum Skin, External Approach (ICD-10-PCS; 2017-09-19)
PROC: 10907ZC Drainage of Amniotic Fluid, Therapeutic from Products of Conception, Via Natural or Artificial Opening (ICD-10-PCS; 2017-09-19)
DX: O48.0 Post-term pregnancy (principal); Z37.0 Single live birth; Z3A.42 42 weeks gestation of pregnancy; O99.820 Streptococcus B carrier state complicating pregnancy; Z87.891 Personal history of nicotine dependence; O76 Abnormality in fetal heart rate and rhythm complicating labor and delivery; O69.82X0 Labor and delivery complicated by other cord entanglement, without compression, not applicable or unspecified; O77.0 Labor and delivery complicated by meconium in amniotic fluid; O70.0 First degree perineal laceration during delivery; Z68.30 Body mass index [BMI] 30.0-30.9, adult